=== PATIENT | female | born 1975 | race African-American/Black ===

== ENCOUNTER → 2017-11-17 | Outpatient (CLI) | payer OTHER ==
[~2017-11-17] MED LIST: IOPAMIDOL 370 MG/ML 200 ML INFUS..BTL INJ ONE; KEPPRA750 MG PO; SODIUM CHLORIDE 0.9% 50ML 50 ML ONE
--- NOTE | 2017-11-17 15:08 | Diagnostic Imaging Report ---
EXAM: CT Chest WITH contrast 11/17/2017 10:49 AM INDICATION: Dyspnea. COMPARISON: None TECHNIQUE: Chest was scanned utilizing a multidetector helical scanner from the lung apex through the level of the adrenal glands without administration of IV contrast. Coronal and sagittal reformations were obtained. Routine protocol was performed. IV CONTRAST: 100 mL of Omnipaque 300 RADIATION DOSE: Total DLP: 310.45 mGy*cm Estimated effective dose: (DLP x 0.014 x size factor) mSv COMPLICATIONS: None FINDINGS: LINES/ TUBES: None. LUNGS AND AIRWAYS: No filling defects within the pulmonary arteries to the segmental level. Bilateral dependent atelectasis with minimal air trapping in the posterior right lung base. Airways are normal. PLEURA: The pleural spaces are clear. Irregular biapical pleural-parenchymal densities suggestive of scarring. A 6 mm noncalcified nodular density in the right apex on image 23 series 3 is also most likely related to scarring, however, a true nodule is not entirely excluded. HEART AND MEDIASTINUM: The thyroid gland is normal. No mediastinal, hilar or axillary lymphadenopathy. The heart is normal in size.. There is no pericardial effusion. UPPER ABDOMEN: Limited non-contrast views of the upper abdomen show no abnormality within the visualized liver, spleen, pancreas, or kidneys. The adrenal glands are normal. BONES: Degenerative changes of the lower cervical spine. SOFT TISSUES: Unremarkable. IMPRESSION: 1. No acute thoracic abnormality. Minimal air trapping in the posterior right lung base without evidence of significant interstitial lung disease change. 2. 0.6 cm nodular density in the right apex likely related to scarring, however, consider follow-up CT chest nodule protocol in 6 months to evaluate stability. Signed by: Dr. Nadine Garcia M.D. on 11/17/2017 3:05 PM
== END ==
LOC: CT 10:37
PROVIDERS: ATTEND Internal Medicine Critical Care Medicine
DX: R06.00 Dyspnea, unspecified (principal)
CPT/HCPCS: 71260; Q9967